=== PATIENT | male | born 1975 | race African-American/Black ===

== ENCOUNTER 2017-09-04 03:28 | Emergency (ER) | payer MEDICAID ==
[~2017-09-04] VITALS: Ht 188 cm; Wt 79.5 kg
[2017-09-04 03:33] VITALS: BP 143/85; PULSE 66; RESP 18; O2SAT 98
[2017-09-04 03:43] VITALS: TEMP 98.4
[2017-09-04] MEDS: TETANUS/DIPHTHERIA TOXOID ADULT 0.5 ML VIAL IM ONE ×2 (03:45→04:25)
[2017-09-04] MEDS ORDERED: ONDANSETRON HCL 4 MG/2 ML VIAL IVP ONE (03:45)
[2017-09-04] MEDS ORDERED: SODIUM CHLORIDE 0.9% FLUSH 10 ML FLUSH IVF PRN (03:45)
[2017-09-04] MEDS ORDERED: CLON0.2T PO (03:49)
[2017-09-04] MEDS ORDERED: AMLO5TAB2 PO (03:49)
[2017-09-04] MEDS ORDERED: HYDR-3799 PO (03:49)
[2017-09-04] MEDS ORDERED: LISI10TA3 PO (03:49)
[2017-09-04] MEDS ORDERED: CARV12.52 PO (03:49)
[2017-09-04] MEDS ORDERED: HYDR12.56 PO (03:49)
--- NOTE | 2017-09-04 03:55 | PD ---
HPI Chief Complaint: Fall Time Seen by Provider: 03:42 Travel History International Travel<30 days: No Contact w/Intl Traveler<30days: No Traveled to known affect area: No History of Present Illness HPI 42-year-old male presents to the emergency department by EMS transport from home after a near syncopal episode after urinating. Patient has been in his usual state of fair health. Patient states he got up to go to the bathroom and felt mildly weak and then after urinating felt very weak and had a near syncopal episode falling to the ground and hitting the back of his head on the bathroom floor. Patient does not recall loss of consciousness. Patient was identified to have small posterior scalp hematoma according to EMS report and placed on backboard C-spine immobilization by the fire department. Patient here reports feeling improved and not as weak as he had been at home. Patient denies any recent febrile illness. PFSH Past Medical History Narrative Medical Hypertension, remote aortic dissection repair, alcohol use marijuana use; nursing notes reviewed AAA: Yes Hypertension: Yes Tetanus Vaccination: > 5 Years Influenza Vaccination: No Past Surgical History Other Surgery: Yes (Aoritic disection repair) Social History Alcohol Use: Yes (rare) Tobacco Use: No Substance Use: Yes (marijuana) Allergies-Medications (Allergen,Severity, Reaction): Coded Allergies: codeine (Verified Adverse Reaction, Unknown, Nausea/Vomiting, 09/04/17) Reported Meds & Prescriptions Reported Meds & Active Scripts Active Reported Hydrochlorothiazide 12.5 Mg Tab 12.5 Mg PO DAILY Carvedilol 12.5 Mg Tab 12.5 Mg PO BID Amlodipine (Amlodipine Besylate) 5 Mg Tab 5 Mg PO HS Lisinopril 10 Mg Tab 10 Mg PO HS Hydralazine HCl 25 Mg Tablet 25 Mg PO BID Clonidine (Clonidine HCl) 0.2 Mg Tab 0.2 Mg PO BID Review of Systems Except as stated in HPI: all other systems reviewed are Neg General / Constitutional: No: Fever, Chills HENT: No: Congestion Cardiovascular: Positive: Syncope (near syncope), No: Chest Pain or Discomfort Respiratory: No: Shortness of Breath Gastrointestinal: No: Nausea, Vomiting Genitourinary: No: Flank Pain Musculoskeletal: No: Myalgias, Arthralgias Skin: No Rash Neurologic: No: Weakness Psychiatric: No: Anxiety Hematologic/Lymphatic: No: Lymph Node Enlargement Physical Exam Narrative GENERAL: Well-developed well-nourished male no acute distress no respiratory distress GCS 15 with backboard C-spine immobilization SKIN: Warm and dry. HEAD: Atraumatic. Normocephalic. Posterior occiput with small soft tissue swelling/hematoma with 0.3 cm linear laceration bleeding controlled. EYES: Pupils equal and round. No scleral icterus. No injection or drainage. ENT: No nasal bleeding or discharge. Mucous membranes pink and moist. NECK: Trachea midline. No JVD. Nontender to palpation cervical collar in place. CARDIOVASCULAR: Regular rate and rhythm. RESPIRATORY: No accessory muscle use. Clear to auscultation. Breath sounds equal bilaterally. GASTROINTESTINAL: Abdomen soft, non-tender, nondistended. Hepatic and splenic margins not palpable. MUSCULOSKELETAL: Extremities without clubbing, cyanosis, or edema. No obvious deformities. With maintain spine immobilization patient log rolled from backboard with no tenderness to direct palpation I cervical thoracic or dorsal spine NEUROLOGICAL: Awake and alert. No obvious cranial nerve deficits. Motor grossly within normal limits. Five out of 5 muscle strength in the arms and legs. Normal speech. PSYCHIATRIC: Appropriate mood and affect; insight and judgment normal. Data Data Last Documented VS Vital Signs Date Time Temp Pulse Resp B/P (MAP) Pulse Ox O2 Delivery O2 Flow Rate FiO2 09/04/17 05:11 98 Room Air 09/04/17 03:43 98.4 09/04/17 03:33 66 18 143/85 (104) Orders Orders Electrocardiogram (09/04/17 03:42) Basic Metabolic Panel (Bmp) (09/04/17 03:42) Complete Blood Count With Diff (09/04/17 03:42) Magnesium (Mg) (09/04/17 03:42) Ckmb (Isoenzyme) Profile (09/04/17 03:42) Troponin I (09/04/17 03:42) Chest, Single Ap (09/04/17 03:42) Ct Brain W/O Iv Contrast(Rout) (09/04/17 03:42) Ct Cerv Spine W/O Contrast (09/04/17 03:42) Ecg Monitoring (09/04/17 03:42) Iv Access Insert/Monitor (09/04/17 03:42) Oximetry (09/04/17 03:42) Ondansetron Inj (Zofran Inj) (09/04/17 03:45) Sodium Chloride 0.9% Flush (Ns Flush) (09/04/17 03:45) Urinalysis - C+S If Indicated (09/04/17 03:42) Tetanus/Diphtheria Tox Adult (Tetanus/Di (09/04/17 03:45) CKMB (09/04/17 04:00) CKMB% (09/04/17 04:00) Orthostatic Vital Signs (09/04/17 05:48) Labs Laboratory Tests Test 09/04/17 04:00 White Blood Count 9.3 TH/MM3 Red Blood Count 4.49 MIL/MM3 Hemoglobin 12.5 GM/DL Hematocrit 38.5 % Mean Corpuscular Volume 85.8 FL Mean Corpuscular Hemoglobin 28.0 PG Mean Corpuscular Hemoglobin Concent 32.6 % Red Cell Distribution Width 14.0 % Platelet Count 105 TH/MM3 Mean Platelet Volume 10.2 FL Neutrophils (%) (Auto) 60.0 % Lymphocytes (%) (Auto) 29.6 % Monocytes (%) (Auto) 4.5 % Eosinophils (%) (Auto) 4.1 % Basophils (%) (Auto) 1.8 % Neutrophils # (Auto) 5.5 TH/MM3 Lymphocytes # (Auto) 2.8 TH/MM3 Monocytes # (Auto) 0.4 TH/MM3 Eosinophils # (Auto) 0.4 TH/MM3 Basophils # (Auto) 0.2 TH/MM3 CBC Comment DIFF FINAL Differential Comment Blood Urea Nitrogen 13 MG/DL Creatinine 1.20 MG/DL Random Glucose 85 MG/DL Calcium Level 8.2 MG/DL Magnesium Level 2.2 MG/DL Sodium Level 141 MEQ/L Potassium Level 3.7 MEQ/L Chloride Level 108 MEQ/L Carbon Dioxide Level 27.3 MEQ/L Anion Gap 6 MEQ/L Estimat Glomerular Filtration Rate 80 ML/MIN Total Creatine Kinase 130 U/L Creatine Kinase MB 0.9 NG/ML Troponin I LESS THAN 0.02 NG/ML MDM Medical Decision Making Medical Screen Exam Complete: Yes Emergency Medical Condition: Yes Medical Record Reviewed: Yes Interpretation(s) EKG: Normal sinus rhythm rate [address] elevation injury pattern or ectopy noted Differential Diagnosis near syncope, syncope, arrhythmia, ACS, CO, electrolyte disturbance, post micturition near-syncope/syncope, minor closed head injury, TIA, CVA, ICH, scalp contusion, scalp laceration Narrative Course Patient placed on shelter monitor with continuous pulse oximetry IV access obtained specimens collections of resulting EKG performed which reveals no acute ST elevation or injury pattern or ectopy Patient resting comfortably waiting on CT imaging Lab values found to be in normal range Chest x-ray no acute abnormality CT brain noncontrast reveals no skull fracture or bleed @ 5:22 c-collar removed after CT per radiologist no acute abnormality Tetanus status updated ordered patient refuses tetanus immunization; posterior scalp injury cleansed and closed with Dermabond please see procedure note Procedures Procedure Narrative LACERATION LOCATION: Posterior scalp LENGTH: subcentimeter 0.3 cm NUMBER OF STITCHES/JONAS: wound adhesive/dermabond REPAIR: The area of the laceration was prepped with NS and betadine. The wound was copiously irrigated and explored without evidence of foreign body, tendon injury or neurovascular injury. The wound was closed using wound adhesive/ dermabond. This was a single layer repair. The patient was advised to keep the site clean and dry. Patient tolerated the procedure well. Diagnosis Primary Impression: Micturition syncope Additional Impressions: Closed head injury Occipital scalp laceration Referrals: Primary Care Physician 2 days Patient Instructions: General Instructions Additional Instructions: Wound check at 2 days Staple removal at 5-7 days Follow-up with your primary care provider Increase fluid hydration Return to the emergency department for any concerns or change in condition Adriana Smith MD Sep 04, 2017 03:55
[2017-09-04 04:23] LABS: AUTOMATED NEUTROPHIL # 5.5 TH/MM3 (1.8-7.7); BASOPHIL # 0.2 TH/MM3 (0-0.2); BASOPHIL % 1.8 % (0.0-2.0); EOSINOPHIL # 0.4 TH/MM3 (0-0.4); EOSINOPHIL % 4.1 % (0.0-4.0); HEMATOCRIT 38.5 % (39.0-51.0); HEMOGLOBIN 12.5 GM/DL (13.0-17.0); LYMPH % 29.6 % (9.0-44.0); LYMPHOCYTE # 2.8 TH/MM3 (1.0-4.8); MEAN CELL VOLUME 85.8 FL (80.0-100.0); MEAN CORPUSCULAR HGB CONC 32.6 % (32.0-36.0); MEAN PLATELET VOLUME 10.2 FL (7.0-11.0); MONO % 4.5 % (0.0-8.0); MONOCYTE # 0.4 TH/MM3 (0-0.9); PLATELET COUNT 105 TH/MM3 (150-450); RED BLOOD COUNT 4.49 MIL/MM3 (4.50-5.90); WHITE BLOOD COUNT 9.3 TH/MM3 (4.0-11.0)
--- NOTE | 2017-09-04 04:27 | RADRPT ---
EXAM DATE/TIME: 09/04/2017 04:05 [facility] COMPARISON: No previous studies available for comparison. INDICATIONS : Palpitations. MEDICAL HISTORY : None. SURGICAL HISTORY : Median sternotomy. ENCOUNTER: Initial ACUITY: 1 day PAIN SCORE: 07/20 LOCATION: Bilateral chest FINDINGS: A single view of the chest demonstrates the lungs to be symmetrically aerated without evidence of mas s, infiltrate or effusion. The cardiomediastinal contours are unremarkable. Osseous structures are intact. The patient has had previous median sternotomy and CABG. CONCLUSION: No evidence of acute cardiopulmonary disease. Reji Baptiste MD on September 04, 2017 at 4:26 Board Certified Radiologist. This report was verified electronically.
[2017-09-04 04:40] LABS: CHLORIDE 108 MEQ/L (98-107); SODIUM (NA) 141 MEQ/L (136-145)
[2017-09-04 04:43] LABS: CALCIUM 8.2 MG/DL (8.5-10.1)
[2017-09-04 04:44] LABS: BICARBONATE 27.3 MEQ/L (21.0-32.0); BLOOD UREA NITROGEN 13 MG/DL (7-18); GLUCOSE,RANDOM 85 MG/DL (74-106); MAGNESIUM 2.2 MG/DL (1.5-2.5)
[2017-09-04 04:47] LABS: GLOMERULAR FILTRATION RATE 80 ML/MIN (>89)
--- NOTE | 2017-09-04 04:49 | RADRPT ---
EXAM DATE/TIME: 09/04/2017 04:13 [facility] COMPARISON: No previous studies available for comparison. INDICATIONS : Trauma, fall. Laceration to posterior head. RADIATION DOSE: 67.37 CTDIvol (mGy) MEDICAL HISTORY : Hypertension. Aneurysm, abdominal. SURGICAL HISTORY : Abdominal aortic aneurysm repair. ENCOUNTER: Initial ACUITY: 1 day PAIN SCALE: 10/10 LOCATION: cranial TECHNIQUE: Multiple contiguous axial images were obtained of the head. Using automated exposure control and adj ustment of the mA and/or kV according to patient size, radiation dose was kept as low as reasonably a chievable to obtain optimal diagnostic quality images. DICOM format image data is available electro nically for review and comparison. FINDINGS: CEREBRUM: The ventricles are normal for age. No evidence of midline shift, mass lesion, hemorrhage or acute in farction. No extra-axial fluid collections are seen. POSTERIOR FOSSA: The cerebellum and brainstem are intact. The 4th ventricle is midline. The cerebellopontine angle i s unremarkable. EXTRACRANIAL: The visualized portion of the orbits is intact. SKULL: The calvaria is intact. No evidence of skull fracture. CONCLUSION: No bleed or other intracranial abnormality. Reji Baptiste MD on September 04, 2017 at 4:47 Board Certified Radiologist. This report was verified electronically.
--- NOTE | 2017-09-04 04:51 | RADRPT ---
EXAM DATE/TIME: 09/04/2017 04:13 [facility] COMPARISON: No previous studies available for comparison. INDICATIONS : Trauma, fall. Laceration to posterior head. RADIATION DOSE: 26.60 CTDIvol (mGy) MEDICAL HISTORY : Hypertension. Aneurysm, abdominal. SURGICAL HISTORY : Abdominal aortic aneurysm repair. ENCOUNTER: Initial ACUITY: 1 day PAIN SCALE: 0/10 LOCATION: neck TECHNIQUE: Volumetric scanning of the cervical spine was performed. Multiplanar reconstructions in the sagittal, coronal and oblique axial planes were performed. Using automated exposure control and adjustment o f the mA and/or kV according to patient size, radiation dose was kept as low as reasonably achievable to obtain optimal diagnostic quality images. DICOM format image data is available electronically f or review and comparison. FINDINGS: There is no fracture or subluxation of the cervical spine. Vertebral bodies have normal height. Parav ertebral soft tissues are within normal limits. Mild disc space narrowing with uncovertebral and facet osteoarthritis seen at C3/C4, C4/C5 and C5/C6. There is mild spinal and bilateral foraminal stenosis at C3/C4. Emphysema seen of the visualized lung apices. CONCLUSION: Intact cervical spine. Degenerative changes as above. Reji Baptiste MD on September 04, 2017 at 4:48 Board Certified Radiologist. This report was verified electronically.
[2017-09-04 04:52] LABS: TROPONIN I LESS THAN 0.02 NG/ML (0.02-0.05)
[2017-09-04 05:11] VITALS: O2SAT 98
[2017-09-04 05:56] LABS: BILIRUBIN, URINE NEG (NEG); BLOOD, URINE NEG (NEG); GLUCOSE,URINE NEG (NEG); KETONE, URINE NEG (NEG); NITRITE,URINE NEG (NEG); URINE LEUKOCYTE ESTERASE NEG (NEG)
[2017-09-04 05:58] LABS: URINE COLOR YELLOW (YELLW/STRAW)
[2017-09-04 05:59] LABS: MUCUS URINE OCC /lpf (OCC); RBC, URINE 0-3 /hpf (0-3); SQUAMOUS EPITHELIAL CELL URINE 0-5 /hpf (0-5); WBC, URINE 0-2 /hpf (0-5)
[2017-09-04] MEDS ORDERED: ONDANSETRON HCL 4 MG/2 ML VIAL IV PUSH ONE (06:00)
[2017-09-04] MEDS ORDERED: KETOROLAC TROMETHAMINE 30 MG/ML (IVP) VIAL IV PUSH ONE (06:00)
[2017-09-04 06:44] VITALS: BP 155/92; PULSE 71; RESP 14; O2SAT 100
[2017-09-04 06:52] VITALS: BP_SYST 160; BP_SYST 164; BP_SYST 169; BP_DIAS 91; BP_DIAS 93; BP_DIAS 96
--- NOTE | 2017-09-04 09:15 | EKG ---
Date Performed: 09/04/2017 Time Performed: 03:53:00 PTAGE: 42 years EKG: Sinus rhythm NORMAL ECG NO PREVIOUS TRACING DOCTOR: Davie Barnett Interpretating Date/Time 09/04/2017 09:14:55
== END 2017-09-04 07:22 | disposition home or self-care (01) ==
LOC: PHED 03:28
DX: R55 Syncope and collapse (principal); S09.90XA Unspecified injury of head, initial encounter; S01.01XA Laceration without foreign body of scalp, initial encounter; I10 Essential (primary) hypertension; W18.30XA Fall on same level, unspecified, initial encounter; Z88.5 Allergy status to narcotic agent; Z79.899 Other long term (current) drug therapy
CPT/HCPCS: 12001; 70450; 71045; 72125; 80048; 81001; 82550; 82552; 83735; 84484; 85025; 93005; 96374; 96375; 96376; 99285; J1885; J2405; 90714